=== PATIENT | female | born 1955 | race African-American/Black ===

== ENCOUNTER 2020-08-15 19:58 | Observation (INO) ==
[2020-08-15 20:29] LABS: Basophils # 0.1 10*3/uL (0.0-0.2); Basophils % 0.4 % (0.0-0.8); Eosinophils # 0.2 10*3/uL (0.0-0.87); Hematocrit 33.2 VOL% (35.7-47.0); Hemoglobin 10.4 GM/DL (12.0-16.0); Immature Granulocytes % 0.8 %; Immature Granulocytes Absolute 0.15 #; Lymphocytes # 1.7 10*3/uL (1.4-4.0); Lymphocytes % 8.6 % (21.3-54.2); Mean Corpuscular HGB Conc 31.3 GM/DL (32-36); Mean Corpuscular Volume 72.5 FL (87-102); Mean Platelet Volume 10.9 FL (9.6-12.0); Monocytes % 7.8 % (1.7-12.7); Neutrophils % 81.4 % (38.7-73.9); Platelet Count 275 T/CUMM (130-400); Red Blood Count 4.58 MC/CUMM (3.8-5.5); Red Cell Distribution Width 13.8 % (9.3-17.3); White Blood Count 19.4 T/CUMM (4-12)
[2020-08-15 20:42] LABS: Alanine Aminotransferase 19 U/L (13-56); Albumin 3.3 G/DL (3.4-5.0); Alkaline Phosphatase 115 U/L (45-117); Aspartate Amino Transferase 20 U/L (0-37); Bilirubin,Total < 0.39 MG/DL (0.2-1.0); Blood Urea Nitrogen 53 MG/DL (7-18); Calcium 9.4 MG/DL (8.5-10.1); Estimated Glom Filtration Rate 11 ML/MIN; Glucose 242 MG/DL (74-106); Osmolality,Calculated 296.7 MOS/KG (273-304); Total Protein 8.2 G/DL (6.4-8.3)
[2020-08-15] MEDS ORDERED: SODIUM CHLORIDE 0.9% 1,000 ML IV STA (21:57)
[2020-08-16 00:01] LABS: Bilirubin,Urine Negative (Negative); Blood, Urine Small mg/dL (Negative); Glucose,Urine (UA) 150 mg/dL (Negative); Granular Casts,Urine 9 /LPF (0-1); Hyaline Casts,Urine 21 /LPF (0-3); Ketones,Urine Negative (Negative); Mucus,Urine Occasional /LPF (Occasional); Nitrite,Urine Negative (Negative); Protein,Urine >=500 MG/DL; RBC,Urine 2 /HPF (0-4); Squamous Epithelial Cell,Urine Occasional /HPF (0-10); Urine Appearance Slightly Hazy (Clear); Urine Color Yellow (Yellow); Urine Specific Gravity 1.016 (1.001-1.035); Urine Urobilinogen < 2.0 EU/DL (0.2-1.0); WBC,Urine 4 /HPF (0-6)
[2020-08-16] MEDS ORDERED: ONDANSETRON 4 MG/2 ML VIAL IV PRN (00:36)
[2020-08-16] MEDS ORDERED: DEXTROSE 50% 25 GM/50 ML VIAL IV PRN (00:36)
[2020-08-16] MEDS ORDERED: GLUCAGON 1 MG VIAL IM PRN (00:36)
[2020-08-16] MEDS: SODIUM CHLORIDE 0.9% 1,000 ML IV SCH ×3 (03:27→20:26)
[2020-08-16 06:45] LABS: Basophils # 0.1 10*3/uL (0.0-0.2); Basophils % 0.4 % (0.0-0.8); Eosinophils # 0.2 10*3/uL (0.0-0.87); Eosinophils % 1.1 % (0.00-10.9); Hematocrit 28.8 VOL% (35.7-47.0); Immature Granulocytes % 0.5 %; Immature Granulocytes Absolute 0.07 #; Lymphocytes % 20.3 % (21.3-54.2); Mean Corpuscular HGB Conc 31.3 GM/DL (32-36); Monocytes % 8.3 % (1.7-12.7); Neutrophils % 69.4 % (38.7-73.9); Platelet Count 231 T/CUMM (130-400); Red Cell Distribution Width 13.9 % (9.3-17.3); White Blood Count 14.5 T/CUMM (4-12)
[2020-08-16 07:21] LABS: Calcium 8.6 MG/DL (8.5-10.1); Osmolality,Calculated 298.3 MOS/KG (273-304)
[2020-08-16] MEDS: LEVOTHYROXINE 150 MCG TABLET PO SCH (07:27)
[2020-08-16] MEDS ORDERED: BISACODYL 5 MG TABLET PO SCH (09:00)
[2020-08-16] MEDS: INSULIN LISPRO 100 UNIT/ML SUBCUT SCH ×4 (09:11→22:08)
[2020-08-16] MEDS: amLODIPine 5 MG TABLET PO SCH (10:35)
[2020-08-16] MEDS: atenoloL 50 MG TABLET PO SCH (10:35)
[2020-08-16] MEDS: ENOXAPARIN 30 MG/0.3 ML SYRINGE SUBCUT SCH (10:35)
[2020-08-16] MEDS: DOCUSATE SODIUM 100 MG CAPSULE PO SCH ×2 (10:36→21:29)
[2020-08-16] MEDS: LORATADINE 10 MG TABLET PO SCH (10:36)
[2020-08-17] MEDS: LEVOTHYROXINE 150 MCG TABLET PO SCH (06:00)
[2020-08-17 06:42] LABS: Basophils % 0.4 % (0.0-0.8); Eosinophils # 0.4 10*3/uL (0.0-0.87); Eosinophils % 3.8 % (0.00-10.9); Hematocrit 29.3 VOL% (35.7-47.0); Hemoglobin 9.2 GM/DL (12.0-16.0); Immature Granulocytes % 0.5 %; Immature Granulocytes Absolute 0.05 #; Lymphocytes % 30.8 % (21.3-54.2); Mean Corpuscular HGB Conc 31.4 GM/DL (32-36); Mean Corpuscular Volume 72.5 FL (87-102); Mean Platelet Volume 10.5 FL (9.6-12.0); Monocytes % 9.5 % (1.7-12.7); Platelet Count 239 T/CUMM (130-400); Red Blood Count 4.04 MC/CUMM (3.8-5.5); Red Cell Distribution Width 13.8 % (9.3-17.3); White Blood Count 9.8 T/CUMM (4-12)
[2020-08-17 07:17] LABS: Calcium 8.7 MG/DL (8.5-10.1)
[2020-08-17] MEDS: amLODIPine 5 MG TABLET PO SCH (08:03)
[2020-08-17] MEDS: LORATADINE 10 MG TABLET PO SCH (08:03)
[2020-08-17] MEDS: POTASSIUM CHLORIDE RIDER 10 MEQ in PREMIX 1 EACH IV PRN ×4 (08:05→11:41)
[2020-08-17] MEDS: INSULIN LISPRO 100 UNIT/ML SUBCUT SCH ×2 (08:11→12:00)
[2020-08-17] MEDS: DOCUSATE SODIUM 100 MG CAPSULE PO SCH (09:27)
[2020-08-17] MEDS: atenoloL 50 MG TABLET PO SCH (09:27)
[2020-08-17] MEDS: ENOXAPARIN 30 MG/0.3 ML SYRINGE SUBCUT SCH (09:28)
[2020-08-17 11:18] VITALS: BP 151/66
[2020-08-17] MEDS ORDERED: POTASSIUM CHLORIDE 20 MEQ TABLET PO ONE (13:27)
== END 2020-08-17 16:15 | disposition home or self-care (01) ==
LOC: N.ED 19:58 → N.EDINP 19:58 → SUATTDRO 08-16 00:36 → N.3E 08-16 02:49 → N.OB 08-16 17:42
PROVIDERS: ADMIT Internal Medicine; ATTEND Internal Medicine

== ENCOUNTER 2021-07-05 01:31 | Observation (INO) ==
[2021-07-05 03:23] LABS: Basophils % 0.3 % (0.0-0.8); Eosinophils # 0.1 10*3/uL (0.0-0.87); Eosinophils % 1.3 % (0.00-10.9); Hemoglobin 11.5 GM/DL (12.0-16.0); Immature Granulocytes % 0.5 %; Immature Granulocytes Absolute 0.05 #; Lymphocytes # 2.7 10*3/uL (1.4-4.0); Lymphocytes % 28.6 % (21.3-54.2); Mean Corpuscular HGB Conc 30.3 GM/DL (32-36); Mean Corpuscular Volume 75.7 FL (87-102); Monocytes % 10.9 % (1.7-12.7); Neutrophils % 58.4 % (38.7-73.9); Platelet Count 168 T/CUMM (130-400); Red Blood Count 5.02 MC/CUMM (3.8-5.5); Red Cell Distribution Width 16.4 % (9.3-17.3); White Blood Count 9.5 T/CUMM (4-12)
[2021-07-05 03:38] LABS: Alanine Aminotransferase 34 U/L (13-56); Albumin 3.6 G/DL (3.4-5.0); Alkaline Phosphatase 78 U/L (45-117); Aspartate Amino Transferase 31 U/L (0-37); Bilirubin,Total < 0.39 MG/DL (0.20-1.00); Blood Urea Nitrogen 79 MG/DL (7-18); Calcium 8.6 MG/DL (8.5-10.1); Carbon Dioxide 23 MMOL/L (21-32); Estimated Glom Filtration Rate 3 ML/MIN; Osmolality,Calculated 290.1 MOS/KG (273-304); Potassium 3.6 MMOL/L (3.5-5.1); Sodium 135 MMOL/L (136-145); Total Protein 8.8 G/DL (6.4-8.2)
[2021-07-05 03:40] LABS: Glucose 50 MG/DL (74-106)
[2021-07-05] MEDS ORDERED: DEXTROSE 50% 25 GM/50 ML SYRINGE IV ONE (03:42)
[2021-07-05] MEDS ORDERED: DEXTROSE 50% 25 GM/50 ML VIAL IV STA (03:45)
[2021-07-05 03:52] LABS: Hypochromasia Slight; Microcytosis Slight; Platelet Estimate Adequate
[2021-07-05 04:17] LABS: Bilirubin,Urine Negative (Negative); Blood, Urine Moderate mg/dL (Negative); Glucose,Urine (UA) Negative (Negative); Hyaline Casts,Urine 49 /LPF (0-3); Ketones,Urine Negative (Negative); Mucus,Urine Occasional /LPF (Occasional); Nitrite,Urine Negative (Negative); Protein,Urine >=500 MG/DL; RBC,Urine 5 /HPF (0-4); Squamous Epithelial Cell,Urine Occasional /HPF (0-10); Urine Appearance CLOUDY (Clear); Urine Color Yellow (Yellow); Urine Specific Gravity 1.018 (1.001-1.035); Urine Urobilinogen < 2.0 EU/DL (0.2-1.0)
[2021-07-05] MEDS ORDERED: ACETAMINOPHEN 325 MG TABLET PO PRN (04:30)
[2021-07-05] MEDS ORDERED: ONDANSETRON 4 MG/2 ML VIAL IV PRN (04:30)
[2021-07-05] MEDS ORDERED: LORATADINE 10 MG TABLET PO PRN (04:34)
[2021-07-05] MEDS ORDERED: MECLIZINE 25 MG TABLET PO PRN (04:34)
[2021-07-05] MEDS ORDERED: INFLUENZA VIRUS VACCINE 0.5 ML SYRINGE IM ONE (06:34)
[2021-07-05] MEDS ORDERED: DEXTROSE 50% 25 GM/50 ML VIAL IV PRN (08:16)
[2021-07-05] MEDS: amLODIPine 5 MG TABLET PO SCH (09:28)
[2021-07-05] MEDS: atenoloL 50 MG TABLET PO SCH (09:28)
[2021-07-05] MEDS: PANTOPRAZOLE 40 MG TABLET PO SCH (09:28)
[2021-07-05] MEDS: LEVOTHYROXINE 150 MCG TABLET PO SCH (09:28)
[2021-07-05] MEDS: cloNIDine 0.1 MG TABLET PO SCH ×2 (09:28→21:05)
[2021-07-05] MEDS: ENOXAPARIN 30 MG/0.3 ML SYRINGE SUBCUT SCH (09:31)
[2021-07-05] MEDS: INSULIN REGULAR 100 UNIT/ML SUBCUT SCH ×4 (11:44→22:25)
[2021-07-05] MEDS ORDERED: HEPARIN 10,000 UNIT/10 ML VIAL IV SCH (14:30)
[2021-07-05] MEDS: DEXTROSE 5% NACL 0.9% 1,000 ML IV SCH (15:15)
[2021-07-05] MEDS ORDERED: SIMVASTATIN 10 MG TABLET PO SCH (21:00)
[2021-07-06] MEDS: INSULIN REGULAR 100 UNIT/ML SUBCUT SCH ×3 (01:58→11:35)
[2021-07-06] MEDS: DEXTROSE 5% NACL 0.9% 1,000 ML IV SCH (03:53)
[2021-07-06 05:54] LABS: Basophils % 0.4 % (0.0-0.8); Eosinophils # 0.1 10*3/uL (0.0-0.87); Eosinophils % 1.6 % (0.00-10.9); Hematocrit 30.6 VOL% (35.7-47.0); Hemoglobin 9.6 GM/DL (12.0-16.0); Immature Granulocytes % 0.4 %; Immature Granulocytes Absolute 0.03 #; Lymphocytes # 3.6 10*3/uL (1.4-4.0); Lymphocytes % 50.3 % (21.3-54.2); Mean Corpuscular HGB Conc 31.4 GM/DL (32-36); Mean Corpuscular Volume 76.7 FL (87-102); Mean Platelet Volume 11.4 FL (9.6-12.0); Monocytes % 10.5 % (1.7-12.7); Neutrophils % 36.8 % (38.7-73.9); Red Blood Count 3.99 MC/CUMM (3.8-5.5); Red Cell Distribution Width 16.3 % (9.3-17.3); White Blood Count 7.1 T/CUMM (4-12)
[2021-07-06 05:57] LABS: Platelet Count 150 T/CUMM (130-400)
[2021-07-06 06:22] LABS: Albumin 3.1 G/DL (3.4-5.0); Bilirubin,Total 0.4 MG/DL (0.20-1.00); Calcium 8.3 MG/DL (8.5-10.1); Potassium 3.4 MMOL/L (3.5-5.1); Total Protein 7.2 G/DL (6.4-8.2)
[2021-07-06 06:28] LABS: Eosinophils 2 % (0-10); Lymphocytes 44 % (20-55); Platelet Estimate Normal; Segmented Neutrophils 40 % (50-85); Total Cells Counted 100
[2021-07-06 06:29] LABS: Hypochromasia Slight; Microcytosis 1+
[2021-07-06 08:04] VITALS: BP 125/51
[2021-07-06] MEDS: PANTOPRAZOLE 40 MG TABLET PO SCH (09:09)
[2021-07-06] MEDS: LEVOTHYROXINE 150 MCG TABLET PO SCH (09:09)
[2021-07-06] MEDS: atenoloL 50 MG TABLET PO SCH (09:09)
[2021-07-06] MEDS: cloNIDine 0.1 MG TABLET PO SCH (09:10)
[2021-07-06] MEDS: amLODIPine 5 MG TABLET PO SCH (09:10)
[2021-07-06] MEDS: ENOXAPARIN 30 MG/0.3 ML SYRINGE SUBCUT SCH (09:12)
[2021-07-06] MEDS ORDERED: SIMVASTATIN 10 MG TABLET PO SCH (21:00)
== END 2021-07-06 12:00 | disposition home or self-care (01) ==
LOC: N.EDINP 01:31 → N.ED 01:31 → N.3E 06:10
PROVIDERS: ADMIT Internal Medicine; ATTEND Internal Medicine

== ENCOUNTER 2022-08-10 01:31 | Observation (INO) ==
[2022-08-10] MEDS ORDERED: hydrALAZINE 20 MG/1 ML VIAL ONE (02:49)
[2022-08-10] MEDS ORDERED: ONDANSETRON 4 MG/2 ML VIAL IV STA (02:49)
[2022-08-10] MEDS ORDERED: hydrALAZINE 20 MG/1 ML VIAL IV STA (02:49)
[2022-08-10 03:23] LABS: Basophils # 0.1 10*3/uL (0.0-0.2); Basophils % 0.4 % (0.0-0.8); Eosinophils # 0.2 10*3/uL (0.0-0.87); Hematocrit 29.3 VOL% (35.7-47.0); Immature Granulocytes % 0.5 %; Immature Granulocytes Absolute 0.08 #; Lymphocytes # 2.2 10*3/uL (1.4-4.0); Lymphocytes % 14.4 % (21.3-54.2); Mean Corpuscular HGB Conc 30.7 GM/DL (32-36); Mean Corpuscular Volume 76.3 FL (87-102); Mean Platelet Volume 10.7 FL (9.6-12.0); Monocytes # 1.4 10*3/uL (0.11-0.8); Monocytes % 9.1 % (1.7-12.7); Neutrophils % 74.6 % (38.7-73.9); Platelet Count 208 T/CUMM (130-400); Red Blood Count 3.84 MC/CUMM (3.8-5.5); Red Cell Distribution Width 17.8 % (9.3-17.3); White Blood Count 15.2 T/CUMM (4-12)
[2022-08-10 03:47] LABS: Albumin 3.9 G/DL (3.4-5.0); Bilirubin,Total 0.5 MG/DL (0.20-1.00); Calcium 8.5 MG/DL (8.5-10.1); Osmolality,Calculated 303.7 MOS/KG (273-304); Potassium 3.9 MMOL/L (3.5-5.1); Total Protein 8.4 G/DL (6.4-8.2)
[2022-08-10] MEDS ORDERED: cefTRIAXone 1,000 MG in SODIUM CHLORIDE 0.9% 100 ML IV STA (04:15)
[2022-08-10] MEDS ORDERED: MORPHINE 2 MG/1 ML SYRINGE IV PRN (05:18)
[2022-08-10] MEDS ORDERED: hydrALAZINE 20 MG/1 ML VIAL IV PRN (05:18)
[2022-08-10] MEDS ORDERED: ONDANSETRON 4 MG/2 ML VIAL IV PRN (05:18)
[2022-08-10] MEDS ORDERED: ACETAMINOPHEN 325 MG TABLET PO PRN (05:18)
[2022-08-10] MEDS ORDERED: GLUCAGON 1 MG VIAL IM PRN (05:39)
[2022-08-10] MEDS ORDERED: DEXTROSE 10% 250 ML BAG IV PRN (05:48)
[2022-08-10] MEDS: AZITHROMYCIN INJ 500 MG in SODIUM CHLORIDE 0.9% 250 ML IV SCH (06:00)
[2022-08-10] MEDS: ALBUTEROL/IPRATROPIUM 3 ML NEB RESP TX SCH ×3 (06:52→19:22)
[2022-08-10] MEDS: INSULIN LISPRO 100 UNIT/ML SUBCUT SCH ×4 (07:56→21:14)
[2022-08-10] MEDS: amLODIPine 10 MG TABLET PO SCH (10:08)
[2022-08-10] MEDS: PANTOPRAZOLE 40 MG TABLET PO SCH (10:08)
[2022-08-10] MEDS: glipiZIDE 5 MG TABLET PO SCH (10:08)
[2022-08-10] MEDS: cloNIDine 0.1 MG TABLET PO SCH ×2 (10:08→21:14)
[2022-08-10] MEDS: atenoloL 50 MG TABLET PO SCH (17:22)
[2022-08-10] MEDS: SIMVASTATIN 10 MG TABLET PO SCH (21:15)
[2022-08-11] MEDS: ALBUTEROL/IPRATROPIUM 3 ML NEB RESP TX SCH ×4 (00:19→19:14)
[2022-08-11 05:01] LABS: Basophils % 0.4 % (0.0-0.8); Eosinophils # 0.3 10*3/uL (0.0-0.87); Eosinophils % 2.4 % (0.00-10.9); Hematocrit 25.4 VOL% (35.7-47.0); Hemoglobin 7.8 GM/DL (12.0-16.0); Immature Granulocytes % 0.6 %; Immature Granulocytes Absolute 0.06 #; Lymphocytes # 3.2 10*3/uL (1.4-4.0); Lymphocytes % 30.4 % (21.3-54.2); Mean Corpuscular HGB Conc 30.7 GM/DL (32-36); Mean Platelet Volume 10.3 FL (9.6-12.0); Monocytes # 1.2 10*3/uL (0.11-0.8); Monocytes % 11.5 % (1.7-12.7); Neutrophils % 54.7 % (38.7-73.9); Platelet Count 180 T/CUMM (130-400); Red Cell Distribution Width 17.8 % (9.3-17.3); White Blood Count 10.4 T/CUMM (4-12)
[2022-08-11 05:15] LABS: Calcium 8.3 MG/DL (8.5-10.1); Osmolality,Calculated 287.7 MOS/KG (273-304); Potassium 3.9 MMOL/L (3.5-5.1)
[2022-08-11 05:30] LABS: Hypochromia Slight; Microcytosis 1+; Ovalocytes Slight; Target Cells Slight
[2022-08-11 05:31] LABS: Tear Drop Cells Slight
[2022-08-11 05:32] LABS: Platelet Estimate Adequate
[2022-08-11] MEDS: LEVOTHYROXINE 150 MCG TABLET PO SCH (05:39)
[2022-08-11] MEDS: INSULIN LISPRO 100 UNIT/ML SUBCUT SCH ×4 (08:25→20:53)
[2022-08-11 08:34] LABS: Hematocrit 26.8 VOL% (35.7-47.0); Hemoglobin 8.1 GM/DL (12.0-16.0)
[2022-08-11] MEDS: cloNIDine 0.1 MG TABLET PO SCH ×3 (08:56→20:52)
[2022-08-11] MEDS: amLODIPine 10 MG TABLET PO SCH (08:56)
[2022-08-11] MEDS: glipiZIDE 5 MG TABLET PO SCH (08:56)
[2022-08-11] MEDS: PANTOPRAZOLE 40 MG TABLET PO SCH (08:56)
[2022-08-11] MEDS: cefTRIAXone 1,000 MG in SODIUM CHLORIDE 0.9% 100 ML IV SCH (08:58)
[2022-08-11] MEDS: AZITHROMYCIN INJ 500 MG in SODIUM CHLORIDE 0.9% 250 ML IV SCH (10:10)
[2022-08-11] MEDS: atenoloL 50 MG TABLET PO SCH (16:27)
[2022-08-11] MEDS: HEPARIN 5,000 UNIT/1 ML VIAL SUBCUT SCH (20:53)
[2022-08-11] MEDS: SIMVASTATIN 10 MG TABLET PO SCH (20:54)
[2022-08-12] MEDS: ALBUTEROL/IPRATROPIUM 3 ML NEB RESP TX SCH ×3 (00:39→16:30)
[2022-08-12] MEDS: LEVOTHYROXINE 150 MCG TABLET PO SCH (06:26)
[2022-08-12] MEDS: cloNIDine 0.1 MG TABLET PO SCH ×2 (08:19→16:20)
[2022-08-12] MEDS: amLODIPine 10 MG TABLET PO SCH (08:20)
[2022-08-12] MEDS: PANTOPRAZOLE 40 MG TABLET PO SCH (08:20)
[2022-08-12] MEDS: HEPARIN 5,000 UNIT/1 ML VIAL SUBCUT SCH (08:20)
[2022-08-12] MEDS: glipiZIDE 5 MG TABLET PO SCH (08:20)
[2022-08-12] MEDS: INSULIN LISPRO 100 UNIT/ML SUBCUT SCH ×3 (08:29→16:34)
[2022-08-12] MEDS: cefTRIAXone 1,000 MG in SODIUM CHLORIDE 0.9% 100 ML IV SCH (08:29)
[2022-08-12] MEDS ORDERED: AZITHROMYCIN 250 MG TABLET PO SCH (09:00)
[2022-08-12 11:15] LABS: % Iron Saturation 40.1 % (18-50)
[2022-08-12 11:50] LABS: Folate 3.9 NG/ML (5.38-24.0)
[2022-08-12] MEDS ORDERED: ALBUTEROL 2.5 MG/3 ML NEB RESP TX ONE (14:45)
[2022-08-12] MEDS ORDERED: IPRATROPIUM 500 MCG/2.5 ML NEB RESP TX ONE (14:45)
[2022-08-12 16:22] VITALS: BP 176/78
[2022-08-12] MEDS: atenoloL 50 MG TABLET PO SCH (16:39)
[2022-08-13] MEDS ORDERED: LEVOTHYROXINE 175 MCG TABLET PO SCH (06:30)
== END 2022-08-12 17:42 | disposition home or self-care (01) ==
LOC: SUATTDRO → N.ED 01:31 → N.EDINP 01:31 → SUATTDRO 07:11 → N.5E 07:28
PROVIDERS: ADMIT Internal Medicine; ATTEND Internal Medicine